=== PATIENT | male | born 1955 | race Caucasian/White ===

== ENCOUNTER 2016-11-14 04:59 | Inpatient (IN) | payer BC, OTHER ==
[2016-11-09 08:34] LABS: HEMATOCRIT 36.5 % (42.0-52.0); HEMOGLOBIN 12.4 gm/dL (14.0-18.0); MCH 30.2 pg (26.0-34.0); MCHC 33.9 g/dL (28.0-37.0); MCV 89.2 fL (80.0-100.0); RBC 4.09 mil/uL (4.50-6.00); RDW 13.4 % (10.5-14.5); WBC 7.1 thou/uL (4.0-11.0)
[2016-11-09 08:39] LABS: URINE BILIRUBIN NEGATIVE (Negative); URINE BLOOD 2+ (Negative); URINE COLOR YELLOW; URINE GLUCOSE-RANDOM* NEGATIVE (Negative); URINE KETONES NEGATIVE (Negative); URINE LEUKOCYTES-REFLEX NEGATIVE (Negative); URINE PROTEIN (DIPSTICK) NEGATIVE (Negative); URINE SPECIFIC GRAVITY >= 1.030 (1.003-1.035); URINE UROBILINOGEN 0.2 E.U./dl (0.2-1.0)
[2016-11-09 08:44] LABS: ALBUMIN 3.5 g/dL (3.4-5.0); CALCIUM 9.4 mg/dL (8.5-10.1); CREATININE 1.2 mg/dL (0.7-1.3); POTASSIUM 3.9 mmol/L (3.5-5.1)
[2016-11-09 10:00] LABS: CRYSTALS None Seen /LPF (None Seen); HYALINE CASTS 0-3 Few /LPF (None Seen); SQUAMOUS 0-3 Few /LPF (0-3); URINE RBC 3-10 Few /HPF (0-2); URINE WBC-REFLEX None Seen /HPF (0-5)
[2016-11-14] VITALS (8 sets, daily range): BP systolic 131–151; BP diastolic 82–99
[~2016-11-14] VITALS: Ht 188 cm; Wt 130.2 kg
--- NOTE | ~2016-11-14 | O ---
[facility] [place] [address] OPERATIVE REPORT Name: WAYLONCARLOS ALBERTO Sanchez Room #: 535-P [facility] IN M.R.#: [id number] Admission: 11/14/16 Attend Phys: Jimbo Calix MD Discharge: Date of : 55 Report #: [id number] THIS REPORT FOR: //name// CC: Jimbo HOLDER DATE OF SERVICE: 11/14/2016 PREOPERATIVE DIAGNOSIS: Posttraumatic end-stage degenerative arthritis, right knee. POSTOPERATIVE DIAGNOSIS: Posttraumatic end-stage degenerative arthritis, right knee. PROCEDURE: Right total knee arthroplasty. SURGEON: Jimbo Calix M.D. INDICATIONS: This active, fit 61-year-old gentleman has chronic progressive degenerative arthritis of the right knee related to an old knee injury and previous ACL reconstruction many years ago, now has marked loss of cartilage space and significant spurring with generalized pain and crepitus consistent with three compartment degenerative arthritis. We have discussed treatment options and elected to go ahead with total knee arthroplasty. DESCRIPTION OF PROCEDURE: The patient was taken to the operating room where he was placed under general anesthesia. Prophylactic intravenous antibiotics were administered. The right knee and leg were meticulously prepped and draped and a thigh tourniquet inflated to 325 mmHg. An anterior longitudinal skin incision was made extending through his old surgical scar. This was carried along the medial peripatellar retinaculum and the patella was reflected laterally. Marked degenerative change in all 3 compartments was noted. The DePuy PFC knee system was utilized. Intramedullary guides were used on both the femur and the tibia. The femur was cut in 5 degrees of valgus and a size 5 press-fit femur seemed to fit appropriately. The proximal tibial cut was made with both intramedullary and extramedullary guidance. Sufficient bone was resected to correct the mild preoperative flexion contracture. A size 4 tibial component seemed to fit nicely. The patellar surface was resected and a size 41 mm patellar button fit nicely. Appropriate anchor holes were created. A trial reduction was performed and the knee seemed best suited for a 10 mm polyethylene insert. This allowed full knee extension and flexion beyond 130 degrees with satisfactory stability throughout range of motion. The patella seemed to track nicely and appeared to be stable. The trial components were removed. The intramedullary canal was blocked with bone blocks on both the femoral and tibial sides. The surfaces were thoroughly irrigated and dried. Methyl methacrylate was mixed and injected into the porous surface of the tibia. The permanent components were brought up [facility] [address] [place] [address] OPERATIVE REPORT Name: CARLOS ALBERTO CONNORS JR Room #: 535-P [facility] IN [facility]#: [id number] Admission: 11/14/16 Attend Phys: Jimbo Calix MD Discharge: Date of : 55 Report #: [id number] onto the field. The DePuy PFC size 4 tibial component was impacted into the proximal tibia. Excess cement was removed from around its margin. A 10 mm polyethylene insert was snapped into place. It seated nicely and appeared to be secure. The DePuy PFC size 5 right femoral component was then impacted on to the distal femur in a press-fit noncemented technique. It seated nicely and appeared to be very secure. The size 41 mm patellar button was cemented into place using appropriate anchor holes and cement. This was secured with a patellar clamp until the cement had hardened. All excess cement was removed from around the margin of the implants. Range of motion, alignment, and stability were assessed and felt to be satisfactory. A single Hemovac was left in the wound exiting through a separate stab incision. The fascia was then closed with multiple #1 Vicryl sutures. The subcutaneous tissues were closed with 0 Monocryl. The skin was closed with skin shivani. A sterile dressing was applied. The patient was awakened and returned to the recovery room in good condition. <ELECTRONICALLY SIGNED> By: Jimbo Calix MD 11/15/16 0657 [id number] Jimbo Calix MD /nt
[~2016-11-14 04:59] MED LIST: ATORVASTATIN CA40 MG PO; CENTRUM SILVER1 EAC2 PO; ELIQUIS2.5 MG PO; FISH OIL 1,001000 M2 PO; LISINOPRIL2.5 MG PO; LOSARTAN-HCTZ1 EAC2 PO; METFORMIN HCL500 MG PO; VITAMIN D1000 UNI1 PO
[2016-11-15] VITALS (7 sets, daily range): BP systolic 122–138; BP diastolic 69–85
[2016-11-15 07:54] LABS: HEMATOCRIT 31.3 % (42.0-52.0); HEMOGLOBIN 10.3 gm/dL (14.0-18.0); MCH 29.9 pg (26.0-34.0); MCHC 33.1 g/dL (28.0-37.0); MCV 90.5 fL (80.0-100.0); RBC 3.46 mil/uL (4.50-6.00); RDW 13.6 % (10.5-14.5); WBC 10.8 thou/uL (4.0-11.0)
[2016-11-16] VITALS: BP 122/69
[2016-11-16 03:31] VITALS: BP 113/74
[2016-11-16 08:00] VITALS: BP 127/63
[2016-11-16 08:09] LABS: HEMATOCRIT 31.1 % (42.0-52.0); HEMOGLOBIN 10.6 gm/dL (14.0-18.0); MCH 30.8 pg (26.0-34.0); MCV 90.4 fL (80.0-100.0); RBC 3.44 mil/uL (4.50-6.00); RDW 13.8 % (10.5-14.5); WBC 8.8 thou/uL (4.0-11.0)
[2016-11-16 08:18] VITALS: BP 127/63
[2016-11-16 15:33] VITALS: BP 130/69
[2016-11-16 19:09] VITALS: BP 144/65
[2016-11-17 04:35] VITALS: BP 157/76
[2016-11-17 05:44] LABS: HEMOGLOBIN 10.8 gm/dL (14.0-18.0); MCH 29.9 pg (26.0-34.0); MCHC 32.7 g/dL (28.0-37.0); MCV 91.4 fL (80.0-100.0); RBC 3.61 mil/uL (4.50-6.00); RDW 13.7 % (10.5-14.5); WBC 8.4 thou/uL (4.0-11.0)
[2016-11-17 07:00] VITALS: BP 132/71
[2016-11-17 09:46] VITALS: BP 132/71
[2016-11-17 10:57] VITALS: BP 132/71
== END 2016-11-17 12:18 | disposition home health service (06) | DRG 470 ==
LOC: TBA 04:59 → 5S 04:59 → PRE 06:24 → 5S 10:48 → PRE 12:06 → 5S 11-17 12:18
PROVIDERS: Orthopaedic Surgery
PROC: 0SRC0J9 Replacement of Right Knee Joint with Synthetic Substitute, Cemented, Open Approach (ICD-10-PCS; principal; 2016-11-14)
DX: M17.31 Unilateral post-traumatic osteoarthritis, right knee (principal); M17.0 Bilateral primary osteoarthritis of knee; E11.9 Type 2 diabetes mellitus without complications; E66.9 Obesity, unspecified; I10 Essential (primary) hypertension; I48.91 Unspecified atrial fibrillation; E78.5 Hyperlipidemia, unspecified; Z79.899 Other long term (current) drug therapy; Z90.49 Acquired absence of other specified parts of digestive tract; Z82.49 Family history of ischemic heart disease and other diseases of the circulatory system; Z68.36 Body mass index [BMI] 36.0-36.9, adult; Z79.4 Long term (current) use of insulin; Z79.01 Long term (current) use of anticoagulants
CPT/HCPCS: 10785; 50010; 50101; 50415; 50954; 51130; 51225; 51412; 51771; 53000; 53358; 53364; 56525; 62110; 62900; 70005

== ENCOUNTER 2019-04-25 06:17 | Inpatient (IN) | payer BC, OTHER ==
[2019-04-17 09:14] LABS: HEMATOCRIT 38.5 % (42.0-52.0); HEMOGLOBIN 12.7 gm/dL (14.0-18.0); MCH 30.1 pg (26.0-34.0); MCHC 32.9 g/dL (28.0-37.0); MCV 91.3 fL (80.0-100.0); RBC 4.22 mil/uL (4.50-6.00); RDW 13.6 % (10.5-14.5); WBC 5.9 thou/uL (4.0-11.0)
[2019-04-17 09:16] LABS: URINE BILIRUBIN NEGATIVE (Negative); URINE BLOOD NEGATIVE (Negative); URINE CLARITY CLEAR; URINE COLOR YELLOW; URINE GLUCOSE-RANDOM* NEGATIVE (Negative); URINE KETONES NEGATIVE (Negative); URINE LEUKOCYTES-REFLEX NEGATIVE (Negative); URINE NITRITE-REFLEX NEGATIVE (Negative); URINE PROTEIN (DIPSTICK) NEGATIVE (Negative); URINE SPECIFIC GRAVITY 1.015 (1.005-1.035)
[2019-04-17 09:30] LABS: ALBUMIN 3.7 g/dL (3.4-5.0); CALCIUM 9.9 mg/dL (8.5-10.1); CREATININE 1.3 mg/dL (0.7-1.3); PROTIME 10.4 Seconds (9.3-11.4)
[2019-04-18 00:05] LABS: GLYCOHEMOGLOBIN (HGB A1C) 7.1 % (4.8-5.6)
[~2019-04-25] VITALS: Ht 188 cm; Wt 129.7 kg
[~2019-04-25 06:17] MED LIST changes: -ATORVASTATIN CA40 MG PO; +CARDIZEM SR 60M60 MG PO; +ELIQUIS5 MG PO; +LIPITOR40 MG PO; +LOSARTAN-HCTZ1 EACH PO; +PROBIOTIC1 EAC7 PO; +TAMBOCOR 100 M100 M1 PO; -VITAMIN D1000 UNI1 PO; +VITAMIN D35000 UNIT PO
[2019-04-25 08:12] VITALS: BP 146/84
[2019-04-26 00:15] VITALS: BP 142/82
--- NOTE | 2019-04-26 04:17 | NUR ---
ASSUMED CARE OF PT @1900 REPORT RECIEVIED FROM DAY SHIFT NURSE PT ARRIVED ON THE UNIT @1730. ADMISSION DONE AND CHARTED A&04, WOOD AND HARDWARE OUTFITTER PUMP IN PLACE AND ASSESSEMENT CHARTED. HEMOVAC IN PLACE EMPTIED 4OOCC AT START OF SHIFT. JOHNY DRESSING AND ICE BAG INTACT. CALLED RT TO INSERT A PULSE-OX MONITOR. UP WITH ASSISTX1 TO THE BR. FALL PREC IN PLACE AND CALL LIGHT WITHIN REACH WILL CONT WITH POC TILL EOS.
[2019-04-26 05:18] LABS: HEMATOCRIT 33.8 % (42.0-52.0); HEMOGLOBIN 10.8 gm/dL (14.0-18.0); MCH 29.2 pg (26.0-34.0); MCHC 31.9 g/dL (28.0-37.0); MCV 91.5 fL (80.0-100.0); RBC 3.69 mil/uL (4.50-6.00); RDW 13.9 % (10.5-14.5); WBC 12.8 thou/uL (4.0-11.0)
[2019-04-26 05:49] VITALS: BP 138/80
[2019-04-26 07:48] VITALS: BP 150/78
--- NOTE | 2019-04-26 12:08 | NUR ---
ASSESSMENT-PT LIVES AT HOME WITH HIS IN A SPLIT LEVEL HOME. HE ALREADY HAS A ROLLER WALKER FROM HIS LAST KNE SURGERY. PT WAS INDEPENDENT OF ADLS PRIOR AND AMBULATION. PT WAS WORKING AND DRIVING. IN GOOD HEALTH AND WILL BE ABLE TO ASSIST HIM AT HOME. NO DC NEEDS ANTICIPATED AT THIS TIME. PT PLANS TO WORK WITH THERAPY THIS AFTERNOON ON STEPS.
[2019-04-26 12:49] LABS: CALCIUM 9.6 mg/dL (8.5-10.1); CREATININE 1.3 mg/dL (0.7-1.3); MAGNESIUM 1.9 mg/dL (1.8-2.4); POTASSIUM 3.8 mmol/L (3.5-5.1)
[2019-04-26 16:45] VITALS: BP 134/81
--- NOTE | 2019-04-26 17:12 | NUR ---
I have reviewed the documentation by DA BULLOCK from 04/26/19 to 04/26/19 and I concur with it. RICHAR CARRANZA
--- NOTE | 2019-04-26 17:16 | NUR ---
PT ASSESSED AT START OF SHIFT. PT DOING WELL. AMBULATED W/ THERAPY IN THE HALLS AND STAIRS AND DID WELL. PAIN UNDER CONTROL ON PO MEDS AFTER PATTERN DUPLICATOR PUMP DC'D THIS AM. TALKED W/ DR. VARMA AND PT HOPING TO DC TOMORROW.
[2019-04-26 19:43] VITALS: BP 166/94
[2019-04-27 04:01] VITALS: BP 138/68
[2019-04-27 05:47] LABS: HEMATOCRIT 29.5 % (42.0-52.0); HEMOGLOBIN 9.8 gm/dL (14.0-18.0); MCH 30.1 pg (26.0-34.0); MCHC 33.2 g/dL (28.0-37.0); MCV 90.6 fL (80.0-100.0); PLATELET COUNT 267 thou/uL (150-400); RBC 3.25 mil/uL (4.50-6.00); RDW 13.8 % (10.5-14.5); WBC 10.2 thou/uL (4.0-11.0)
[2019-04-27 06:06] LABS: CALCIUM 9.1 mg/dL (8.5-10.1); CREATININE 1.2 mg/dL (0.7-1.3); MAGNESIUM 1.9 mg/dL (1.8-2.4); POTASSIUM 3.8 mmol/L (3.5-5.1)
[2019-04-27 07:38] LABS: ABSOLUTE NEUTROPHILS 7.4 thou/uL (1.4-8.2); ANISOCYTOSIS 2+; METAMYELOCYTES 1 %; POLYCHROMASIA OCCASIONAL
[2019-04-27 09:32] VITALS: BP 137/82
[2019-04-27 17:30] VITALS: BP 144/77
--- NOTE | 2019-04-27 18:40 | NUR ---
PT A&OX4, IV INTACT IN L HAND. AMBULATES WITH ASSIST AND WALKER. HEMOVAC REMOVED WITH 45ML SEROUS. SANG. DRAINAGE. TOLERATING PO PAIN MED WELL. ICE PACK APPLIED. SPOUSE AT BED SIDE.
[2019-04-27 21:20] VITALS: BP 138/80
--- NOTE | 2019-04-28 01:13 | NUR ---
ASSUMED CARE OF PT @1900 PT ASSESSED AT START OF SHIFT A&OX4 JOHNY DRESSING INTACT UP WITH ASSISTX1 TO BATHROOM. VSS AND ICE PACK IN PLACE, PT CALLS TO LET NEEDS KNOWN. FALL PREC IN PLACE AND CALL LIGHT WITHIN REACH WILL CONT WITH POC TILL EOS.
[2019-04-28 03:35] VITALS: BP 131/71
[2019-04-28 05:00] LABS: HEMATOCRIT 28.3 % (42.0-52.0); HEMOGLOBIN 9.4 gm/dL (14.0-18.0); MCH 30.3 pg (26.0-34.0); MCHC 33.3 g/dL (28.0-37.0); RBC 3.11 mil/uL (4.50-6.00); RDW 13.8 % (10.5-14.5); WBC 8.9 thou/uL (4.0-11.0)
[2019-04-28 08:27] VITALS: BP 136/78
[2019-04-28 11:12] VITALS: BP 136/78
--- NOTE | 2019-04-28 11:32 | NUR ---
Assumed care of pt at 0700. Pt a&ox4. Dressing c/d/i. SBA with gaitbelt and walker. Prn pain meds given per pt request. Pain controlled. Will discharge to home. Fall precautions in place.
--- NOTE | 2019-04-30 12:27 | O ---
[facility] [place] [address] OPERATIVE REPORT Name: CONNORSCARLOS ALBERTO Sanchez Room #: 439-P [facility] IN M.R.#: [id number] Admission: 04/25/19 Attend Phys: Jimbo Calix MD Discharge: 04/28/19 Date of : 55 Report #: [id number] THIS REPORT FOR: //name// CC: Jimbo HOLDER Physician staff DATE OF SERVICE: 04/25/2019 PREOPERATIVE DIAGNOSIS: Degenerative osteoarthritis, left knee. POSTOPERATIVE DIAGNOSIS: Degenerative osteoarthritis, left knee. PROCEDURE: Left total knee arthroplasty. SURGEON: Jimbo Calix MD INDICATIONS: This generally healthy 63-year-old gentleman has problems with progressive degenerative arthritis in both knees. He underwent right total knee replacement in the past with good result. He now has progressive left knee pain with mild varus malalignment and significant joint space narrowing. He has tried conservative measures without clear benefit and has decided to go ahead with total joint replacement. DESCRIPTION OF PROCEDURE: The patient was taken to the operating room where he was placed under general anesthesia. Prophylactic intravenous antibiotics were administered. A femoral nerve block was also applied. The left leg was meticulously prepped and draped. A thigh tourniquet was inflated to 350 mmHg. An anterior longitudinal skin incision was made and carried through the medial retinaculum. The patella was reflected laterally. Marked degenerative change in all 3 compartments was noted. The Taylor and Nephew knee system was utilized. Intramedullary guides were used on both the femur and the tibia. The femur was cut in 5 degrees of valgus and the tibia cut perpendicular to long axis of the bone. The femur seemed best suited for a size 7 cruciate retaining femoral component. The tibial side was best suited for a size 6 tibial baseplate. The patellar surface was resected and a 38 mm patellar button fit nicely. A trial reduction was performed and the knee seemed best suited for a 10 mm polyethylene insert. Alignment, range of motion and stability were satisfactory. The trial components were removed. The intramedullary canal was blocked with bone block on both the femoral and tibial sides. The surfaces were thoroughly irrigated and dried. Methyl methacrylate cement was mixed and injected into the porous surface of the proximal tibia. The Taylor and Nephew size 6 Regina II left nonporous tibial baseplate was then inserted. It was impacted into position. It seated nicely and appeared to be secure. A 10 mm polyethylene insert using the Legion cruciate retaining high flexion component was selected. [address] [address] OPERATIVE REPORT Name: CARLOS ALBERTO CONNORS JR Room #: 439-P [facility] IN M.R.#: [id number] Admission: 04/25/19 Attend Phys: Jimbo Calix MD Discharge: 04/28/19 Date of : 55 Report #: [id number] This was snapped into position and seated nicely. The size 7 left Taylor and Nephew cruciate retaining Legion porous femoral component was impacted on the distal femur. It also seated nicely and appeared to be secure. A size 38-mm Regina II patellar button was cemented into place with appropriate anchor holes. A patellar clamp was used until the cement had fully hardened. All excess cement was removed from around the margin. Alignment, range of motion, stability and leg length were assessed and felt to be satisfactory. The patella tracked nicely and appeared to be stable. A single Hemovac was left in the wound exiting through a separate stab incision. The fascia and the medial retinaculum was then repaired with multiple #1 Vicryl sutures. The subcutaneous tissues were closed with 0 Monocryl. The skin was closed with skin shivani. A sterile dressing was applied. The patient was awakened and returned to recovery room in good condition. <ELECTRONICALLY SIGNED> By: Jimbo Calix MD 04/30/19 1227 [id number] Jimbo Calix MD /nt
== END 2019-04-28 11:37 | disposition home or self-care (01) | DRG 470 ==
LOC: PRE 06:17 → TBA 07:44 → PRE 08:10 → 4S 18:25
PROVIDERS: Nurse Practitioner; ADMIT Orthopaedic Surgery
PROC: 0SRD0J9 Replacement of Left Knee Joint with Synthetic Substitute, Cemented, Open Approach (ICD-10-PCS; principal; 2019-04-25)
DX: M17.12 Unilateral primary osteoarthritis, left knee (principal); I10 Essential (primary) hypertension; I48.91 Unspecified atrial fibrillation; E11.9 Type 2 diabetes mellitus without complications; J45.909 Unspecified asthma, uncomplicated; E78.00 Pure hypercholesterolemia, unspecified; Z79.01 Long term (current) use of anticoagulants; Z90.89 Acquired absence of other organs; Z98.42 Cataract extraction status, left eye; Z98.41 Cataract extraction status, right eye; Z79.891 Long term (current) use of opiate analgesic; Z79.4 Long term (current) use of insulin; Z79.899 Other long term (current) drug therapy
CPT/HCPCS: 10102; 50010; 50101; 50415; 50954; 51130; 51225; 51412; 53364; 56525; 57095; 57104; 57180; 62110; 62900; 64039; 70005